=== PATIENT | female | born 1940 | race Asian ===

== ENCOUNTER → 2023-05-17 | Outpatient (CLI) | payer MEDICARE, OTHER ==
[~2023-05-17] MED LIST: ASPI-825 PO; CALC-488 PO; GLUC-29 PO; LEVO25TA4 PO
== END | disposition home or self-care (01) ==
LOC: LABMN 11:09
PROVIDERS: ATTEND Internal Medicine Geriatric Medicine
DX: M25.521 Pain in right elbow (principal)
CPT/HCPCS: 73030-TC

== ENCOUNTER 2023-08-30 11:11 | Emergency (ER) | payer MEDICARE, OTHER ==
[~2023-08-30] VITALS: Ht 147.3 cm; Wt 52.7 kg
[2023-08-30 11:32] VITALS: BP 140/75; PULSE 89; RESP 16; TEMP 98.2
== END 2023-08-30 15:45 | disposition left against medical advice (07) ==
LOC: EMS 11:11
DX: M25.561 Pain in right knee (principal); M79.641 Pain in right hand; I10 Essential (primary) hypertension; Z90.49 Acquired absence of other specified parts of digestive tract; Z98.51 Tubal ligation status
CPT/HCPCS: 82962; 99284

== ENCOUNTER → 2023-12-06 | Outpatient (CLI) | payer MEDICARE, OTHER | END | disposition home or self-care (01) | LOC: RADMN 10:02 | PROVIDERS: ATTEND Internal Medicine Geriatric Medicine | DX: M19.011 Primary osteoarthritis, right shoulder (principal); M25.811 Other specified joint disorders, right shoulder; M25.511 Pain in right shoulder; M25.711 Osteophyte, right shoulder; M25.519 Pain in unspecified shoulder | CPT/HCPCS: 73030-TC ==